=== PATIENT | male | born 1930 | race Caucasian/White ===

== ENCOUNTER 2018-06-12 13:29 | Emergency (ER) | payer MEDICARE ==
--- NOTE | 2018-06-12 13:54 | ED ---
Fall HPI - General Chief Complaint: Fall Stated Complaint: Fell Time Seen by Provider: 06/12/18 13:38 Source: patient, family, RN notes reviewed Mode of arrival: ambulatory - History of Present Illness Initial Comments: This is a 88-year-old male with a history of only been on aspirin, history of AAA, no neurological disorders. He was going upstairs a garment bag over shoulder he went to reach for a radial and distal radial fell backwards down about 5 steps hitting his posterior head against concrete. He got right back up he states he has some burning and stinging in his head he denies any head neck or back pain blurry vision nausea vomiting loss of function is upper or lower extremities or other injury. No other injuries reported no other modifying factors at this time MD Complaint: fall - Related Data Home Medications Medication Instructions Recorded Confirmed Artificial Tears-Hypromellose 1 drop BOTH EYES DAILY 06/12/18 06/12/18 [Artificial Tear Drops] Aspirin [[place] Aspirin EC] 81 mg PO DAILY 06/12/18 06/12/18 Atorvastatin [Lipitor] 20 mg PO DAILY 06/12/18 06/12/18 Levothyroxine Sodium [Synthroid] 150 mcg PO DAILY 06/12/18 06/12/18 Multivitamins, Thera [Multivitamin 1 tab PO DAILY 06/12/18 06/12/18 (formulary)] Tamsulosin [Flomax] 0.4 mg PO DAILY 06/12/18 06/12/18 Allergies Allergy/AdvReac Type Severity Reaction Status Date / Time No Known Allergies Allergy Verified 06/12/18 14:02 Review of Systems ROS Statement: Those systems with pertinent positive or pertinent negative responses have been documented in the HPI. ROS Other: All systems not noted in ROS Statement are negative. Past Medical History Past Medical History: Myocardial Infarction ([place]) Additional Past Medical History / Comment(s): AAA History of Any Multi-Drug Resistant Organisms: None Reported Past Surgical History: Appendectomy, Coronary Bypass/CABG, Orthopedic Surgery Additional Past Surgical History / Comment(s): triple bypass, caratid artery bypass, AAA repair, right kidney repair Past Psychological History: No Psychological Hx Reported Smoking Status: Former smoker Past Alcohol Use History: None Reported Past Drug Use History: None Reported General Exam - General Exam Comments Initial Comments: This is a well-developed well-nourished awake alert oriented 3 male he does demonstrate a Zeny Coma Scale of 15 he does not currently meet the, one or 2 criteria is. Limitations: no limitations General appearance: alert, in no apparent distress Head exam: Present: normocephalic, other (Tenderness to palpation over the scalp with evidence of abrasion no definite open wounds or require suture repair. No step-off no crepitation.) Eye exam: Present: normal appearance, PERRL, EOMI. Absent: scleral icterus, conjunctival injection, periorbital swelling ENT exam: Present: normal exam, mucous membranes moist Neck exam: Present: normal inspection, other (Cervical collar was placed at triage and is currently in place no definite tenderness palpation however.). Absent: tenderness, meningismus, lymphadenopathy Respiratory exam: Present: normal lung sounds bilaterally. Absent: respiratory distress, wheezes, rales, rhonchi, stridor Cardiovascular Exam: Present: regular rate, normal rhythm, normal heart sounds. Absent: systolic murmur, diastolic murmur, rubs, gallop, clicks GI/Abdominal exam: Present: soft, normal bowel sounds. Absent: distended, tenderness, guarding, rebound, rigid Extremities exam: Present: normal inspection, full ROM, normal capillary refill. Absent: tenderness, pedal edema, joint swelling, calf tenderness Back exam: Present: other (Patient does demonstrate scoliosis and kyphosis he also has a tender area to the superior portion of the right posterior pelvis no bruising noted but some likely hematoma noted. No step-off no crepitation. No tenderness over the hips) Neurological exam: Present: alert, oriented X3, CN II-XII intact Psychiatric exam: Present: normal affect, normal mood Skin exam: Present: warm, dry, intact, normal color. Absent: rash Course Vital Signs 06/12/18 06/12/18 13:36 14:25 Temperature 97.8 F Pulse Rate 85 84 Respiratory 18 18 Rate Blood Pressure 193/103 192/96 O2 Sat by Pulse 97 99 Oximetry - Reevaluation(s) Reevaluation #1: 06/12/18 15:31 I did remove the cervical collar after examining the CAT scans and the results. Patient has full range of motion of his neck no tenderness palpation he remains awake alert oriented 3 with a Zeny Coma Scale of 15. Medical Decision Making - Medical Decision Making I did discuss the findings with the patient multiple family members. He was noted ably without difficulty. Full range of motion he was discharged after dressing placed to the scalp abrasion. - Radiology Data Radiology results: report reviewed, image reviewed Disposition Clinical Impression: Fall, Scalp abrasion, Scalp contusion Disposition: HOME SELF-CARE Condition: Good Instructions: Fall Prevention for Older Adults (ED), Abrasion (ED), Contusion in Adults (ED) Additional Instructions: Ice 24-40 yards, Tylenol for pain Is patient prescribed a controlled substance at d/c from ED?: No Referrals: None,Stated [REFERRING] - 1-2 days
[2018-06-12 13:56] VITALS: RESP 18; TEMP 97.8
--- NOTE | 2018-06-12 14:56 | CT ---
EXAMINATION TYPE: CT brain dara olivia DATE OF EXAM: 06/12/2018 COMPARISON: NONE HISTORY: Fall today with posterior injury CT DLP: 1319.1 mGycm. Automated Exposure Control for Dose Reduction was Utilized. TECHNIQUE: CT scan of the head and cervical spine are performed without contrast. FINDINGS: There is no acute intracranial hemorrhage, mass effect, or midline shift identified. The ventricles and sulci are within normal limits in size. The globes demonstrate postsurgical changes but are otherwise unremarkable and intact. The visualized sinuses are clear. Cervical spine is visualized in its entirety from C1 through upper thoracic levels and demonstrates s atisfactory alignment without evidence of acute fracture or dislocation. Prevertebral soft tissue ap pears within normal limits. The C1-C2 articulation is unremarkable. Multilevel degenerative changes are seen throughout the spine most prominent at C6-C7. Facets are in normal anatomical alignment. Ve rtebral body heights are maintained. Calcification is seen throughout the partially visualized aorta. Sternotomy wires are present. IMPRESSION: 1. There is no acute fracture or dislocation evident in the cervical spine. 2. No acute intracranial hemorrhage, mass effect, or midline shift.
[2018-06-12 16:02] VITALS: BP 143/72; PULSE 72
== END 2018-06-12 16:03 | disposition home or self-care (01) ==
LOC: EC 13:29
DX: S00.03XA Contusion of scalp, initial encounter (principal); R40.2412 Glasgow coma scale score 13-15, at arrival to emergency department; I25.2 Old myocardial infarction; Z95.1 Presence of aortocoronary bypass graft; Z87.891 Personal history of nicotine dependence; Z79.82 Long term (current) use of aspirin; Z79.890 Hormone replacement therapy; Z79.899 Other long term (current) drug therapy; W10.9XXA Fall (on) (from) unspecified stairs and steps, initial encounter; Y92.009 Unspecified place in unspecified non-institutional (private) residence as the place of occurrence of the external cause
CPT/HCPCS: 70450; 72125; 99283

== ENCOUNTER → 2018-08-08 | Outpatient (CLI) | payer MEDICARE ==
--- NOTE | 2018-08-08 14:45 | US ---
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 History of left side endarterectomy "years ago" EXAM MEASUREMENTS: RIGHT: Peak Systolic Velocity (PSV) cm/sec ----- Right CCA: 67.7 ----- Right ICA: 98.2 ----- Right ECA: 82.3 ICA/CCA ratio: 1.5 RIGHT: End Diastole cm/sec ----- Right CCA: 15.4 ----- Right ICA: 19.8 ----- Right ECA: 8.1 LEFT: Peak Systolic Velocity (PSV) cm/sec ----- Left CCA: 86.2 ----- Left ICA: 84.9 ----- Left ECA: 79.7 ICA/CCA ratio: 1.0 LEFT: End Diastole cm/sec ----- Left CCA: 16.3 ----- Left ICA: 26.7 ----- Left ECA: 7.2 VERTEBRALS (direction of flow): Right Vertebral: Antegrade Left Vertebral: Antegrade Rhythm: Normal Grayscale images show moderate shadowing hyperechoic plaque at right carotid bulb. There is mild to m oderate eccentric plaque at left carotid bulb. Velocity measurements and ratios appear within normal limits bilaterally. IMPRESSION: Moderate right greater than left atherosclerotic change without hemodynamically signific ant stenosis seen in either internal carotid artery . Criteria for Assigning % of Stenosis / Diameter reduction (Estimation based on the indirect measurements of the internal carotid artery velocities (ICA PSV). 1. Normal (no stenosis)=ICA PSV < 125 cm/s: ratio < 2.0: ICA EDV<40 cm/s. 2. Less than 50% stenosis=ICA PSV < 125 cm/s: ratio < 2.0: ICA EDV<40 cm/s. 3. 50 to 69% stenosis=ICA PSV of 125 to 230 cm/s: ration 2.0 ? 4.0: ICA EDV 40-100 cm/s. 4. Greater than 70% stenosis to near occlusion= ICA PSV > 230 cm/s: ratio > 4.0: ICA EDV > 100 cm/s. 5. Near occlusion= ICA PSV velocities may be low or undetectable: variable ratio and ICA EDV. 6. Total occlusion=unable to detect flow.
== END | disposition home or self-care (01) ==
LOC: RADUSWWP 13:18
PROVIDERS: ATTEND Internal Medicine
DX: I65.23 Occlusion and stenosis of bilateral carotid arteries (principal)
CPT/HCPCS: 93880

== ENCOUNTER 2018-11-15 20:23 | Emergency (ER) | payer MEDICARE ==
[2018-11-15] MEDS ORDERED: LIDOCAINE 1% INJ 10MG/ML (20 ML MDV) SQ STA (20:55)
[2018-11-15] MEDS ORDERED: DIPH,PERTUS(ACELL)TETVAC-LF 0.5 ML VIAL IM ONE (20:56)
[2018-11-15] MEDS ORDERED: WATER FOR IRRIG, STERILE 1,000 ML BTL IRRIGATION ONE (20:56)
--- NOTE | 2018-11-15 21:46 | CT ---
EXAMINATION TYPE: CT brain cspine wo con DATE OF EXAM: 11/15/2018 COMPARISON: 06/12/2018 HISTORY: pt fall, facial laceration CT DLP: 963.4 mGycm Automated exposure control for dose reduction was used. TECHNIQUE: CT scan of the head and cervical spine are performed without contrast. FINDINGS: There is right frontal scalp soft tissue swelling. There is cerebral cortical atrophy. Th ere is no mass effect nor midline shift. There is some high attenuation involving the cerebral falx i n the midline consistent with acute hemorrhage. This measures 20 x 4 mm. The calvarium is intact. Cervical vertebra have fairly normal alignment. There is degenerative disc space narrowing at C5-6 C6 -7 with spurring of the endplates. There is multilevel cervical facet arthropathy. Skull base is inta ct. There is no evidence of cervical spine fracture. IMPRESSION: Spondylotic changes in the cervical spine. No fracture. No change. cerebral atrophy. Minimal acute hemorrhage at the cerebral falx is a change compared to old exam.
--- NOTE | 2018-11-15 21:56 | CT ---
EXAMINATION TYPE: CT facial bones wo con DATE OF EXAM: 11/15/2018 COMPARISON: None HISTORY: pt fall, facial laceration CT DLP: 963.4 mGycm Automated exposure control for dose reduction was used. TECHNIQUE: CT scan of the sinuses is performed without contrast, axial images are obtained, coronal r eformatted images are also reviewed. FINDINGS: The orbital margins are intact. There is no evidence of a blowout fracture. There is no ret ro-orbital mass. Mandibular ring is intact. The maxilla is intact. Temporomandibular joints are intac t. Zygomatic arches appear normal. There is focal right frontal scalp soft tissue swelling consistent with subcutaneous hematoma. Nasal bone appears intact. IMPRESSION: Right frontal scalp hematoma. No acute bony abnormality. This patient's exam results were discussed with emergency room Feliciano Meléndez at 9:50 PM.
[2018-11-15 22:11] LABS: Basophils # (A) 0.1 k/uL (0-0.2); Basophils % (A) 1 %; Eosinophils # (A) 0.2 k/uL (0-0.7); Eosinophils % (A) 3 %; HCT 42.1 % (39.0-53.0); HGB 13.5 gm/dL (13.0-17.5); Lymphocytes # (A) 0.8 k/uL (1.0-4.8); Lymphocytes % (A) 11 %; MCH 32.2 pg (25.0-35.0); MCV 100.6 fL (80.0-100.0); Macrocytosis Slight; Monocytes # (A) 0.7 k/uL (0-1.0); Monocytes % (A) 10 %; Neutrophils # (A) 5.2 k/uL (1.3-7.7); Neutrophils % (A) 73 %; Platelet Count 248 k/uL (150-450); RBC 4.18 m/uL (4.30-5.90); RDW 15.1 % (11.5-15.5)
[2018-11-15 22:24] LABS: Calcium 9.8 mg/dL (8.4-10.2)
[2018-11-15 22:30] LABS: Potassium 4.6 mmol/L (3.5-5.1)
[2018-11-15 22:32] LABS: Prothrombin Time 10.3 sec (9.0-12.0)
--- NOTE | 2018-11-15 22:34 | ED ---
General Adult HPI - General Source: patient, EMS, RN notes reviewed, old records reviewed Mode of arrival: EMS <Feliciano Meléndez - Last Filed: 11/15/18 22:42> <Aj Beck - Last Filed: 11/15/18 22:51> - General Chief complaint: Fall Stated complaint: Fall, Facial lac Time Seen by Provider: 11/15/18 20:25 - History of Present Illness Initial comments: 88-year-old male patient passed history of hypothyroidism, hypertension presents to ED after mechanical fall. Patient reports he was walking, tripped on a curb, fell 4, hitting his face on the concrete and creating a laceration to the dorsal aspect of his left hand. Patient states that he believes that he may have had a small loss of consciousness as he does not remember the fall. Patient reports a very mild headache. She denies any changes in vision. Patient denies any nause a vomiting diarrhea, altered mental status, chest pain, sob. abdominal pain. Systemic: Pt denies fatigue, fever/chills, rash. Pt denies weakness, night sweats, weight loss. Neuro: Pt denies headache, visual disturbances, syncope or pre-syncope. HEENT: Pt denies ocular discharge or irritation, otalgia, rhinorrhea, pharyngitis or notable lymphadenopathy. Cardiopulmonary: Pt denies chest pain, SOB, heart palpitations, dyspnea on exertion. Abdominal/GI: Pt denies abdominal pain, n/v/d. : Pt denies dysuria, burning w/ urination, frequency/urgency. Denies new onset urinary or bowel incontinence. MSK: Pt denies myalgia, loss of strength or function in extremities. Neuro: Pt denies new onset weakness, paresthesias. (Feliciano Meléndez) - Related Data Home Medications Medication Instructions Recorded Confirmed Aspirin [[place] Aspirin EC] 81 mg PO DAILY 06/12/18 11/15/18 Multivitamins, Thera [Multivitamin 1 tab PO DAILY 06/12/18 11/15/18 (formulary)] Tamsulosin [Flomax] 0.4 mg PO DAILY 06/12/18 11/15/18 Levothyroxine Sodium [Synthroid] 112 mcg PO DAILY 11/15/18 11/15/18 Naproxen 250 mg PO BID PRN 11/15/18 11/15/18 amLODIPine [Norvasc] 5 mg PO DAILY 11/15/18 11/15/18 Allergies Allergy/AdvReac Type Severity Reaction Status Date / Time No Known Allergies Allergy Verified 11/15/18 20:47 Review of Systems ROS Other: All systems not noted in ROS Statement are negative. <Feliciano Meléndez - Last Filed: 11/15/18 22:42> ROS Other: All systems not noted in ROS Statement are negative. <Aj Beck - Last Filed: 11/15/18 22:51> ROS Statement: Those systems with pertinent positive or pertinent negative responses have been documented in the HPI. Past Medical History Past Medical History: Myocardial Infarction ([place]) Additional Past Medical History / Comment(s): AAA History of Any Multi-Drug Resistant Organisms: None Reported Past Surgical History: Appendectomy, Coronary Bypass/CABG, Orthopedic Surgery Additional Past Surgical History / Comment(s): triple bypass, caratid artery bypass, AAA repair, right kidney repair Past Psychological History: No Psychological Hx Reported Smoking Status: Former smoker Past Alcohol Use History: None Reported Past Drug Use History: None Reported <Feliciano Meléndez - Last Filed: 11/15/18 22:42> General Exam <Feliciano Meléndez - Last Filed: 11/15/18 22:42> - General Exam Comments Initial Comments: Constitutional: NAD, AOX3, Pt has pleasant affect. HEENT: NC/AT, trachea midline, neck supple, no lymphadenopathy. Posterior pharynx non erythematous, without exudates. External ears appear normal, without discharge. Mucous membranes moist. Eyes PERRLA, EOM intact. There is no scleral icterus. No pallor noted. Cardiopulmonary: RRR, no murmurs, rubs or gallops, no JVD noted. Lungs CTAB in anterior and posterior [place]. No peripheral edema. Abdominal exam: Abdomen soft and non-distended. Abdomen non-tender to palpation in all 4 quadrants. Bowel sounds active in LLQ. No hepatosplenomegaly. No ecchymosis Neuro: CN II-XII intact. No nuchal rigidity. No raccon eyes, no benson sign, no hemotympanum. No cervical spinal tenderness. NIH 0. MSK: Mild abrasion to right orbit, nose. 4 cm laceration to dorsal aspect of left hand. Irrigated 1 L normal saline. Approximated with 5 simple interrupted sutures. No snuffbox tenderness. Mild mild tenderness at the fifth metacarpal. Full active range of motion hand. Capillary refill less than 2 seconds, sensation intact. No posterior calf tenderness bilaterally, homans sign negative bilaterally. Posterior tibialis and radial pulse +2 bilaterally. Sensation intact in upper and lower extremities. Full active ROM in upper and lower extremities, 5/5 stregnth. (Feliciano Meléndez) Course Vital Signs 11/15/18 11/15/18 11/15/18 20:25 21:14 22:35 Temperature 98.4 F 98 F Pulse Rate 106 H 102 H 107 H Respiratory 16 16 18 Rate Blood Pressure 194/90 170/85 166/83 O2 Sat by Pulse 97 97 98 Oximetry 11/15/18 22:48 Temperature 98 F Pulse Rate 107 H Respiratory 18 Rate Blood Pressure 166/83 O2 Sat by Pulse 98 Oximetry Procedures - Laceration Laceration #1 Consent Obtained: verbal consent Indication: laceration Site: hand (left hand, lateral aspect along 5th metacarpal ), other Size (cm): 4 Description: linear Depth: simple, single layer Anesthetic Used: lidocaine 1% Anesthesia Technique: local infiltration Amount (mls): 6 Pre-repair: irrigated extensively (1L NS ) Type of Sutures: nylon Size of Sutures: 5-0 Number of Sutures: 4 Technique: simple, interrupted Patient Tolerated Procedure: well, no complications <Feliciano Meléndez - Last Filed: 11/15/18 22:42> Medical Decision Making - Lab Data Result diagrams: 11/15/18 20:55 11/15/18 20:55 <Feliciano Meléndez - Last Filed: 11/15/18 22:42> - Lab Data Result diagrams: 11/15/18 20:55 11/15/18 20:55 <Aj Beck - Last Filed: 11/15/18 22:51> - Medical Decision Making 88-year-old male patient passed history of hypothyroidism, hypertension presents to ED after mechanical fall. Patient reports he was walking, tripped on a curb, fell 4, hitting his face on the concrete and creating a laceration to the dorsal aspect of his left hand. Patient states that he believes that he may have had a small loss of consciousness as he does not remember the fall. Patient reports a very mild headache. She denies any changes in vision. P atient denies any nausea vomiting diarrhea, altered mental status, chest pain, sob. abdominal pain. Pt VS displayed hypertension, improved without intervention. Physical exam displayed: Mild abrasion to right orbit, nose. 4 cm laceration to dorsal aspect of left hand. Irrigated 1 L normal saline. Approximated with 5 simple interrupted sutures. No snuffbox tenderness. Mild mild tenderness at the fifth metacarpal. Full active range of motion hand. Capillary refill less than 2 seconds, sensation intact. Abrasion on R orbit and nose cleaned in ED. CT of brain and cervical spine displayed slightly changes in cervical spine, no fracture or change. Cerebral atrophy, minimal acute hemorrhage in the cerebral falx. CT of facial bones displayed right frontal scalp hematoma, no acute bony abnormality. CXR did not display any pneumothorax or consolidation, official read not back from radiology, was also reviewed by attending physcian Dr. Anguiano. Patient will be transferred to [facility] by ambulance for neurosurgery. Case discussed and pt seen with Dr. Anguiano. Pt tetanus up to date. (Feliciano Meléndez) I saw this patient in conjunction with the physician admin assistant. I performed independent history and physical exam. Agree with case management. Family had initially requested transfer to [facility] and I had spoke with Dr. Kingsley, and we were in the process of arranging transfer there. They did subsequent only change their destination to [facility] in [place]. I did speak with Dr. Ni there who accepted transfer. (Aj Beck) - Lab Data Lab Results 11/15/18 11/15/18 11/15/18 Range/Units 20:55 20:55 20:55 WBC 7.0 (3.8-10.6) k/uL RBC 4.18 L (4.30-5.90) m/uL Hgb 13.5 (13.0-17.5) gm/dL Hct 42.1 (39.0-53.0) % MCV 100.6 H (80.0-100.0) fL MCH 32.2 (25.0-35.0) pg MCHC 32.0 (31.0-37.0) g/dL RDW 15.1 (11.5-15.5) % Plt Count 248 (150-450) k/uL Neutrophils % 73 % Lymphocytes % 11 % Monocytes % 10 % Eosinophils % 3 % Basophils % 1 % Neutrophils # 5.2 (1.3-7.7) k/uL Lymphocytes # 0.8 L (1.0-4.8) k/uL Monocytes # 0.7 (0-1.0) k/uL Eosinophils # 0.2 (0-0.7) k/uL Basophils # 0.1 (0-0.2) k/uL Macrocytosis Slight PT 10.3 (9.0-12.0) sec INR 1.0 (<1.2) APTT 18.8 L (22.0-30.0) sec Sodium 141 (137-145) mmol/L Potassium 4.6 (3.5-5.1) mmol/L Chloride 106 (98-107) mmol/L Carbon Dioxide 27 (22-30) mmol/L Anion Gap 8 mmol/L BUN 26 H (9-20) mg/dL Creatinine 0.97 (0.66-1.25) mg/dL Est GFR (CKD-EPI)AfAm 81 (>60 ml/min/1.73 sqM) Est GFR (CKD-EPI)NonAf 70 (>60 ml/min/1.73 sqM) Glucose 118 H (74-99) mg/dL Calcium 9.8 (8.4-10.2) mg/dL Disposition Is patient prescribed a controlled substance at d/c from ED?: No - Out of Hospital Transfer - Req. Specs Out of Hospital Transfer - Requested Specifics: Other Emergency Center ([facility]) <Feliciano Meléndez - Last Filed: 11/15/18 22:42> <Aj Beck - Last Filed: 11/15/18 22:51> Clinical Impression: Hemorrhage of brain, traumatic Disposition: OTHER INSTITUTION NOT DEFINED Condition: Serious Referrals: Dennis Ibarra MD [Primary Care Provider] - 1-2 days
[2018-11-15 22:37] VITALS: BP 166/83; PULSE 107; RESP 18; TEMP 98
[2018-11-15 22:42] LABS: Partial Thromboplastin Time 18.8 sec (22.0-30.0)
--- NOTE | 2018-11-15 23:05 | XR ---
EXAM: XR Chest, 1 View CLINICAL HISTORY: Pain TECHNIQUE: Frontal view of the chest. COMPARISON: No relevant prior studies available. FINDINGS: Lungs: Unremarkable. No consolidation. Pleural space: Unremarkable. No pneumothorax. Heart: Unremarkable. No cardiomegaly. Mediastinum: Unremarkable. Bones/joints: Evidence of primary median sternotomy. Degenerative changes of the osseous structures. IMPRESSION: No acute findings.
== END 2018-11-15 22:48 | disposition other institution (70) ==
LOC: EC 20:23
DX: S06.2X0A Diffuse traumatic brain injury without loss of consciousness, initial encounter (principal); S61.412A Laceration without foreign body of left hand, initial encounter; G31.9 Degenerative disease of nervous system, unspecified; I25.2 Old myocardial infarction; Z79.82 Long term (current) use of aspirin; Z79.890 Hormone replacement therapy; Z79.899 Other long term (current) drug therapy; Z87.891 Personal history of nicotine dependence; Z95.1 Presence of aortocoronary bypass graft; W01.198A Fall on same level from slipping, tripping and stumbling with subsequent striking against other object, initial encounter; Y93.01 Activity, walking, marching and hiking
CPT/HCPCS: 36415; 93005; 80048; 85025; 85610; 85730; 71045; 72125; 70486; 70450; 99285; 12002; J2001

== ENCOUNTER 2018-12-07 23:27 | Observation (INO) | payer MEDICARE ==
--- NOTE | 2018-12-07 23:34 | ED ---
Weakness HPI - General Stated complaint: weakness Time Seen by Provider: 12/07/18 23:34 - Related Data Home Medications Medication Instructions Recorded Confirmed Aspirin [Meta Aspirin EC] 81 mg PO DAILY 06/12/18 12/07/18 Multivitamins, Thera [Multivitamin 1 tab PO DAILY 06/12/18 12/07/18 (formulary)] Tamsulosin [Flomax] 0.4 mg PO HS 06/12/18 12/07/18 amLODIPine [Norvasc] 5 mg PO DAILY 11/15/18 12/07/18 Atorvastatin [Lipitor] 20 mg PO HS 12/07/18 12/07/18 Levothyroxine Sodium 150 mcg PO DAILY 12/07/18 12/07/18 Allergies Allergy/AdvReac Type Severity Reaction Status Date / Time No Known Allergies Allergy Verified 12/07/18 23:40 Review of Systems ROS Statement: Those systems with pertinent positive or pertinent negative responses have been documented in the HPI. ROS Other: All systems not noted in ROS Statement are negative. Past Medical History Past Medical History: Myocardial Infarction (DC) Additional Past Medical History / Comment(s): AAA History of Any Multi-Drug Resistant Organisms: None Reported Past Surgical History: Appendectomy, Coronary Bypass/CABG, Orthopedic Surgery Additional Past Surgical History / Comment(s): triple bypass, caratid artery bypass, AAA repair, right kidney repair Past Psychological History: No Psychological Hx Reported Smoking Status: Former smoker Past Alcohol Use History: None Reported Past Drug Use History: None Reported Course Vital Signs 12/07/18 12/08/18 23:30 04:01 Temperature 99.5 F 97.6 F Pulse Rate 115 H 117 H Respiratory 19 26 H Rate Blood Pressure 146/62 135/65 O2 Sat by Pulse 99 97 Oximetry EKG Findings - EKG Comments: EKG Findings:: EKG shows sinus tachycardia 160, MN 152, QRS 120, QTC 419 Medical Decision Making - Lab Data Result diagrams: 12/08/18 00:00 12/08/18 00:00 Lab Results 12/08/18 12/08/18 12/08/18 Range/Units 00:00 00:00 00:00 WBC 4.7 (3.8-10.6) k/uL RBC 3.84 L (4.30-5.90) m/uL Hgb 12.4 L (13.0-17.5) gm/dL Hct 36.7 L (39.0-53.0) % MCV 95.6 D (80.0-100.0) fL MCH 32.3 (25.0-35.0) pg MCHC 33.8 (31.0-37.0) g/dL RDW 15.9 H (11.5-15.5) % Plt Count 144 L (150-450) k/uL Neutrophils % 74 % Lymphocytes % 11 % Monocytes % 10 % Eosinophils % 1 % Basophils % 1 % Neutrophils # 3.5 (1.3-7.7) k/uL Lymphocytes # 0.5 L (1.0-4.8) k/uL Monocytes # 0.5 (0-1.0) k/uL Eosinophils # 0.1 (0-0.7) k/uL Basophils # 0.1 (0-0.2) k/uL PT (9.0-12.0) sec INR (<1.2) APTT (22.0-30.0) sec Sodium 132 L (137-145) mmol/L Potassium 5.2 H (3.5-5.1) mmol/L Chloride 99 (98-107) mmol/L Carbon Dioxide 22 (22-30) mmol/L Anion Gap 11 mmol/L BUN 25 H (9-20) mg/dL Creatinine 1.21 (0.66-1.25) mg/dL Est GFR (CKD-EPI)AfAm 62 (>60 ml/min/1.73 sqM) Est GFR (CKD-EPI)NonAf 53 (>60 ml/min/1.73 sqM) Glucose 213 H (74-99) mg/dL Calcium 8.6 (8.4-10.2) mg/dL Magnesium 2.0 (1.6-2.3) mg/dL Total Bilirubin 0.8 (0.2-1.3) mg/dL AST 47 (17-59) U/L ALT 27 (21-72) U/L Alkaline Phosphatase 73 (38-126) U/L Troponin I (0.000-0.034) ng/mL NT-Pro-B Natriuret Pep 485 pg/mL Total Protein 6.8 (6.3-8.2) g/dL Albumin 3.9 (3.5-5.0) g/dL Lipase 129 (23-300) U/L Urine Color Urine Appearance (Clear) Urine pH (5.0-8.0) Ur Specific Margie (1.001-1.035) Urine Protein (Negative) Urine Glucose (UA) (Negative) Urine Ketones (Negative) Urine Blood (Negative) Urine Nitrite (Negative) Urine Bilirubin (Negative) Urine Urobilinogen (<2.0) mg/dL Ur Leukocyte Esterase (Negative) Urine RBC (0-5) /hpf Urine WBC (0-5) /hpf Urine Bacteria (None) /hpf Urine Mucus (None) /hpf 12/08/18 12/08/18 12/08/18 Range/Units 00:00 00:00 00:50 WBC (3.8-10.6) k/uL RBC (4.30-5.90) m/uL Hgb (13.0-17.5) gm/dL Hct (39.0-53.0) % MCV (80.0-100.0) fL MCH (25.0-35.0) pg MCHC (31.0-37.0) g/dL RDW (11.5-15.5) % Plt Count (150-450) k/uL Neutrophils % % Lymphocytes % % Monocytes % % Eosinophils % % Basophils % % Neutrophils # (1.3-7.7) k/uL Lymphocytes # (1.0-4.8) k/uL Monocytes # (0-1.0) k/uL Eosinophils # (0-0.7) k/uL Basophils # (0-0.2) k/uL PT 11.7 (9.0-12.0) sec INR 1.1 (<1.2) APTT 23.6 (22.0-30.0) sec Sodium (137-145) mmol/L Potassium (3.5-5.1) mmol/L Chloride (98-107) mmol/L Carbon Dioxide (22-30) mmol/L Anion Gap mmol/L BUN (9-20) mg/dL Creatinine (0.66-1.25) mg/dL Est GFR (CKD-EPI)AfAm (>60 ml/min/1.73 sqM) Est GFR (CKD-EPI)NonAf (>60 ml/min/1.73 sqM) Glucose (74-99) mg/dL Calcium (8.4-10.2) mg/dL Magnesium (1.6-2.3) mg/dL Total Bilirubin (0.2-1.3) mg/dL AST (17-59) U/L ALT (21-72) U/L Alkaline Phosphatase (38-126) U/L Troponin I <0.012 (0.000-0.034) ng/mL NT-Pro-B Natriuret Pep pg/mL Total Protein (6.3-8.2) g/dL Albumin (3.5-5.0) g/dL Lipase (23-300) U/L Urine Color Yellow Urine Appearance Clear (Clear) Urine pH 5.5 (5.0-8.0) Ur Specific Margie 1.023 (1.001-1.035) Urine Protein 1+ H (Negative) Urine Glucose (UA) Negative (Negative) Urine Ketones Negative (Negative) Urine Blood Negative (Negative) Urine Nitrite Negative (Negative) Urine Bilirubin Negative (Negative) Urine Urobilinogen <2.0 (<2.0) mg/dL Ur Leukocyte Esterase Negative (Negative) Urine RBC 1 (0-5) /hpf Urine WBC 1 (0-5) /hpf Urine Bacteria Rare H (None) /hpf Urine Mucus Rare H (None) /hpf Disposition Clinical Impression: Weakness, Dehydration, Fever Disposition: ADMITTED IP TO THIS [facility] Condition: Good Instructions (If sedation given, give patient instructions): Dehydration (ED), Weakness (ED) Is patient prescribed a controlled substance at d/c from ED?: No Referrals: Dennis Ibarra MD [Primary Care Provider] - 1-2 days
--- NOTE | 2018-12-08 00:35 | XR ---
EXAM: XR Chest, 2 Views CLINICAL HISTORY: Chest Pain TECHNIQUE: Frontal and lateral views of the chest. COMPARISON: 11/15/18 FINDINGS: Lungs: Unremarkable. No consolidation. Pleural space: Unremarkable. No pneumothorax. Heart: Unremarkable. No cardiomegaly. Mediastinum: See below. Bones/joints: sternal wires and mediastinal clips are again noted. 18 mm gap at left acromioclavicular joint is again noted IMPRESSION: No acute findings or change
[2018-12-08 00:53] LABS: Basophils # (A) 0.1 k/uL (0-0.2); Basophils % (A) 1 %; Eosinophils # (A) 0.1 k/uL (0-0.7); Eosinophils % (A) 1 %; HCT 36.7 % (39.0-53.0); HGB 12.4 gm/dL (13.0-17.5); Lymphocytes # (A) 0.5 k/uL (1.0-4.8); Lymphocytes % (A) 11 %; MCH 32.3 pg (25.0-35.0); MCHC 33.8 g/dL (31.0-37.0); Mean Platelet Volume 7.7; Monocytes # (A) 0.5 k/uL (0-1.0); Monocytes % (A) 10 %; Neutrophils # (A) 3.5 k/uL (1.3-7.7); Neutrophils % (A) 74 %; Platelet Count 144 k/uL (150-450); RBC 3.84 m/uL (4.30-5.90); RDW 15.9 % (11.5-15.5); WBC 4.7 k/uL (3.8-10.6)
[2018-12-08 00:54] LABS: MCV 95.6 fL (80.0-100.0)
[2018-12-08 00:58] LABS: Albumin 3.9 g/dL (3.5-5.0); Calcium 8.6 mg/dL (8.4-10.2); INR 1.1 (<1.2); Partial Thromboplastin Time 23.6 sec (22.0-30.0); Prothrombin Time 11.7 sec (9.0-12.0); Total Bilirubin 0.8 mg/dL (0.2-1.3); Total Protein 6.8 g/dL (6.3-8.2)
[2018-12-08 01:00] LABS: Potassium 5.2 mmol/L (3.5-5.1)
[2018-12-08] MEDS ORDERED: SODIUM CHLORIDE 0.9% 1,000 ML IV STA ×2 (01:40)
[2018-12-08] MEDS ORDERED: SODIUM CHLORIDE 0.9% 500 ML 500 ML IV STA (01:40)
--- NOTE | 2018-12-08 01:45 | CT ---
EXAM: CT Head Without Intravenous Contrast CLINICAL HISTORY: ams. Pain TECHNIQUE: Axial computed tomography images of the head/brain without intravenous contrast. DLP is 1134.4 mGy-cm. This CT exam was performed using one or more of the following dose reduction techniques: automated exposure control, adjustment of the mA and/or kV according to patient size, and/or use of iterative reconstruction technique. Coronal and sagittal reconstructions are performed COMPARISON: 11/15/18 FINDINGS: Brain: Moderate age-related generalized brain volume loss and chronic small vessel ischemic changes. No hemorrhage. Ventricles: Unremarkable. No ventriculomegaly. Bones/joints: Unremarkable. No acute fracture. Soft tissues: Unremarkable. Sinuses: Unremarkable as visualized. No acute sinusitis. Mastoid air cells: Unremarkable as visualized. No mastoid effusion. Orbits: Bilateral cataract surgeries. IMPRESSION: No acute findings.
[2018-12-08 01:52] LABS: Appearance,Urine Clear (Clear); Bacteria,Urine Rare /hpf; Bilirubin,Urine Negative (Negative); Blood,Urine Negative (Negative); Color,Urine Yellow; Glucose,Urine (UA) Negative (Negative); Ketones,Urine Negative (Negative); Leukocyte Esterase,Urine Negative (Negative); Mucus,Urine Rare /hpf; Nitrite,Urine Negative (Negative); PH, Urine 5.5 (5.0-8.0); Protein,Urine 1+ (Negative); RBC,Urine 1 /hpf (0-5); Specific Gravity,Urine 1.023 (1.001-1.035); Urobilinogen,Urine <2.0 mg/dL (<2.0)
[2018-12-08] MEDS ORDERED: SODIUM CHLORIDE 0.9% 1,000 ML IV ONE (04:34)
[2018-12-08] MEDS ORDERED: ACETAMINOPHEN TAB 500 MG TAB PO STA (04:36)
[2018-12-08] MEDS ORDERED: ACETAMINOPHEN TAB 325 MG TAB PO PRN (04:36)
[2018-12-08] MEDS ORDERED: IBUPROFEN 800 MG TAB PO STA (04:36)
[2018-12-08 06:06] VITALS: BP 110/66; PULSE 103; RESP 18; TEMP 98.1
--- NOTE | 2018-12-09 08:58 | P.HPIM ---
History of Present Illness H&P Date: 12/08/18 Chief Complaint: Weakness HISTORY AND PHYSICAL AND DISCHARGE SUMMARY: This is an 88-year-old male patient of Dr. Ibarra with past medical history of hypertension, hyperlipidemia, hypothyroidism, benign prostatic hypertrophy, coronary artery disease status post 3 vessel CABG 13 years ago, triple a repair 10 years ago, carotid endarterectomy 10 years ago on the left side, removed mole history of tobacco use. Patient's son and daughter provided most of the history. In May patient had a trip and fall and 3 weeks ago he had another trip and fall walking up a curb. There is no loss of consciousness. He had his right forehead and he was diagnosed with a closed head injury. He did have a small subdural hematoma was treated at [facility]. He did have multiple CAT scans done there. Since that time his gait is been somewhat unsteady but getting stronger and not requiring walker. On Wednesday patient became shaky and tremulous and his had felt hot. He started using a walker again. While at [facility] he also was started on Toprol for right bundle branch block but heart rate was low and this was subsequently discontinued by Dr. Ibarra. Family states the patient has less than 500 mL of fluid intake daily as he does not want to get up to the bathroom frequently due to urinary urgency and frequency. They also are concerned that he has calorie intake is less than 500 per day. Patient has not had any diarrhea. No numbness or tingling, no seizure activity, no recent bug bites. He denies any chest pain, cough, abdominal pain. Patient was brought into [facility] emergency center for viri luation placed on the observation unit. Temperature max 100.1, heart rate 103, blood pressure 110/66, pulse ox 95% on room air. Hemoglobin is 12.4 and platelet count 144. Sodium 132, potassium 5.2, chloride 99, CO2 22, BUN 25 and creatinine 1.21. Blood sugar 213 troponin negative on one drop. ProBNP 485. Urinalysis was protein 1+, rare bacteria and mucus. Influenza testing was negative. CT of the brain showed no acute findings. Chest x-ray was negative for acute cardiac pulmonary findings. Blood culture no growth at 24 hours. The patient was provided IV fluids and initially started on ceftriaxone which was subsequently discontinued is no sign of infection was found. Patient was eating his breakfast and denied any complaints. No documented fevers. Patient will be discharged home today in stable condition. Review of Systems Constitutional: Reports fatigue, Reports malaise, Reports poor appetite, Reports weakness, Denies chills, Denies fever Ears, nose, mouth and throat: Denies dysphagia, Denies mouth pain, Denies nasal congestion, Denies nasal discharge, Denies vertigo Cardiovascular: Denies chest pain, Denies dyspnea on exertion, Denies edema, Denies leg edema, Denies lightheadedness, Denies syncope Respiratory: Denies cough, Denies cough with sputum, Denies dyspnea, Denies excessive sputum, Denies hemoptysis, Denies home oxygen, Denies wheezing Gastrointestinal: Reports loss of appetite, Denies abdominal pain, Denies meet rrhea, Denies melena, Denies nausea, Denies vomiting Genitourinary: Denies dysuria Musculoskeletal: Reports gait dysfunction, Reports muscle weakness, Denies myalgias Integumentary: Denies pruritus, Denies rash, Denies wounds Neurological: Denies aphasia, Denies change in mentation, Denies change in speech, Denies confusion, Denies numbness, Denies seizures, Denies syncope, Denies weakness Psychiatric: Denies anxiety, Denies depression Endocrine: Reports high blood sugars Past Medical History Past Medical History: Myocardial Infarction (AR) Additional Past Medical History / Comment(s): AAA Last Myocardial Infarction Date:: 2008 History of Any Multi-Drug Resistant Organisms: None Reported Past Surgical History: Appendectomy, Coronary Bypass/CABG, Orthopedic Surgery Additional Past Surgical History / Comment(s): triple bypass 2009, caratid artery bypass, AAA repair, right kidney repair Past Anesthesia/Blood Transfusion Reactions: No Reported Reaction Past Psychological History: No Psychological Hx Reported Smoking Status: Former smoker Past Alcohol Use History: None Reported Past Drug Use History: None Reported - Past Family History Father History Unknown: Yes Additional Family Medical History / Comment(s): Father from a ruptured AAA. Mother History Unknown: Yes Additional Family Medical History / Comment(s): Mother from a ruptured AAA. Sister(s) History Unknown: Yes Additional Family Medical History / Comment(s): The patient has 13 siblings that are all . One sister still living with multiple medical issues unknown to patient and family. There is family history of breast cancer and lung cancer in smokers. Son(s) Family Medical History: No Reported History Daughter(s) Family Medical History: No Reported History Medications and Allergies Home Medications Medication Instructions Recorded Confirmed Type Multivitamins, Thera [Multivitamin 1 tab PO DAILY 06/12/18 12/07/18 History (formulary)] Tamsulosin [Flomax] 0.4 mg PO HS 06/12/18 12/07/18 History amLODIPine [Norvasc] 5 mg PO DAILY 11/15/18 12/07/18 History Atorvastatin [Lipitor] 20 mg PO HS 12/07/18 12/07/18 History Levothyroxine Sodium 150 mcg PO DAILY 12/07/18 12/07/18 History Allergies Allergy/AdvReac Type Severity Reaction Status Date / Time No Known Allergies Allergy Verified 12/08/18 06:09 Physical Exam Vitals: Vital Signs Temp Pulse Pulse Resp BP BP Pulse Ox 12/08/18 06:05 98.1 F 103 H 18 110/66 95 12/08/18 05:56 19 12/08/18 04:40 100.1 F H 12/08/18 04:01 97.6 F 117 H 26 H 135/65 97 12/08/18 00:02 112 H 12/07/18 23:30 99.5 F 115 H 19 146/62 99 Intake and Output 12/08/18 12/08/18 12/08/18 06:59 14:59 22:59 Intake Total 300 Balance 300 Intake: Oral 300 Other: Voiding Method Urinal Urinal # Voids 1 Weight 64.41 kg Gen: This is an 88-year-old male. He is resting bed and appears to be comfortable. He is in no acute distress. HEENT: Head is atraumatic, normocephalic. Pupils equal, round. Sclerae is anicteric. NECK: Supple. No JVD. No lymphadenopathy. No thyromegaly. LUNGS: Clear to auscultation. No wheezes or rhonchi. No intercostal retractions. HEART: Regular rate and rhythm. No murmur. ABDOMEN: Soft. Bowel sounds are present. No masses. No tenderness. EXTREMITIES: No pedal edema. No calf tenderness. NEUROLOGICAL: Patient is awake, alert and oriented x3. Cranial nerves 2 through 12 are grossly intact. Results CBC & Chem 7: 12/08/18 00:00 12/08/18 00:00 Labs: Abnormal Lab Results - Last 24 Hours (Table) 12/08/18 12/08/18 12/08/18 Range/Units 00:00 00:00 00:50 RBC 3.84 L (4.30-5.90) m/uL Hgb 12.4 L (13.0-17.5) gm/dL Hct 36.7 L (39.0-53.0) % RDW 15.9 H (11.5-15.5) % Plt Count 144 L (150-450) k/uL Lymphocytes # 0.5 L (1.0-4.8) k/uL Sodium 132 L (137-145) mmol/L Potassium 5.2 H (3.5-5.1) mmol/L BUN 25 H (9-20) mg/dL Glucose 213 H (74-99) mg/dL Urine Protein 1+ H (Negative) Urine Bacteria Rare H (None) /hpf Urine Mucus Rare H (None) /hpf Thrombosis Risk Factor Assmnt - Choose All That Apply Any of the Below Risk Factors Present?: Yes Each Factor Represents 1 point: Obesity (BMI >25) Other Risk Factors: Yes Each Risk Factor Represents 3 Points: Age 75 years or older Other congenital or acquired thrombophilia - If yes, enter type in comment: No Thrombosis Risk Factor Assessment Total Risk Factor Score: 4 Thrombosis Risk Factor Assessment Level: Moderate Risk Assessment and Plan Plan: 1. Weakness most likely secondary to heat stroke. Patient to be encouraged to increase oral intake, increase fluid intake. 2. Hypertension. 3. Hyperlipidemia. 4. Hypothyroidism. 5. History of coronary artery disease status post three-vessel CABG. 6. History of AAA repair. 7. History of carotid endarterectomy. 8. Hyperglycemia with no history of diabetes. 9. Recent history of closed head injury treated at [facility]. Patient placed on the observation unit. Discharge plan: Return home. Discharge Medication List Multivitamins, Thera [Multivitamin (formulary)] 1 tab PO DAILY 06/12/18 [History] Tamsulosin [Flomax] 0.4 mg PO HS 06/12/18 [History] amLODIPine [Norvasc] 5 mg PO DAILY 11/15/18 [History] Atorvastatin [Lipitor] 20 mg PO HS 12/07/18 [History] Levothyroxine Sodium 150 mcg PO DAILY 12/07/18 [History] Impression and plan of care have been directed as dictated by the signing physician. Gayla Werner nurse practitioner acting as scribe for signing physician.
== END 2018-12-08 14:10 | disposition home or self-care (01) ==
LOC: EC 23:27 → 4MS4W 23:51 → UNDOADMIN 23:51 → 1SOBS 12-08 04:35
PROVIDERS: ADMIT Internal Medicine; ATTEND Internal Medicine
DX: R53.1 Weakness (principal); I10 Essential (primary) hypertension; E78.5 Hyperlipidemia, unspecified; E03.9 Hypothyroidism, unspecified; N40.0 Benign prostatic hyperplasia without lower urinary tract symptoms; I45.10 Unspecified right bundle-branch block; I25.10 Atherosclerotic heart disease of native coronary artery without angina pectoris; R73.9 Hyperglycemia, unspecified; I25.2 Old myocardial infarction; E86.0 Dehydration; R50.9 Fever, unspecified; E66.9 Obesity, unspecified; Z68.27 Body mass index [BMI] 27.0-27.9, adult; Z79.899 Other long term (current) drug therapy; Z79.82 Long term (current) use of aspirin; Z79.890 Hormone replacement therapy; Z95.1 Presence of aortocoronary bypass graft; Z86.79 Personal history of other diseases of the circulatory system; Z87.891 Personal history of nicotine dependence; Z87.820 Personal history of traumatic brain injury; Z91.81 History of falling; Z90.49 Acquired absence of other specified parts of digestive tract; Z82.49 Family history of ischemic heart disease and other diseases of the circulatory system; Z80.3 Family history of malignant neoplasm of breast; Z80.1 Family history of malignant neoplasm of trachea, bronchus and lung
CPT/HCPCS: 96361 ×2; 96365; 99285; 93005; 83880; 80053; 83690; 83735; 84484; 85025; 85610; 85730; 81001; 87040; 87502; 71046; 70450; G0378; J0696